=== PATIENT | female | born 1990 ===

== ENCOUNTER 2019-05-11 18:13 | Emergency (ER) | payer OTHER ==
[~2019-05-11] VITALS: Ht 157.5 cm; Wt 62.6 kg
--- OUTSIDE RECORDS SUMMARY | ~2019-05-11 | XMS | Encounter Summary ---
Demographics + + + | Address | [address] [address] | | | [place] [address] | + + + | Home Phone | | + + + | Preferred Language | Unknown | + + + | Marital Status | Single | + + + | Latter-Day Affiliation | Unknown | + + + | Race | White | + + + | Ethnic Group | or | + + + Author + + + | Author | [facility] | + + + | Organization | [facility] | + + + | Address | Unknown | + + + | Phone | Unavailable | + + + Support + + + + + | Name | Relationship | Address | Phone | + + + + + | Cas Merrill | ECON | [address] | | | | | [place], | | | | | [place] [address] | | + + + + + Care Team Providers + +------+ + | Care Drug Inspector Name | Role | Phone | + +------+ + PCP | Unavailable | + +------+ + Encounter Details +--------+ + + + + | Date | Type | Department | Care Team | Description | +--------+ + + + + | 02/24/ | Results | Registration [id number] | | | | 1993 | Only | [address] | | | | | | [address] Mailcode: [address] | | | | | | [place], [place] | | | | | | [address] | | | | | | [phone] | | | +--------+ + + + + Social History + +-------+ +--------+------+ | Tobacco Use | Types | Packs/Day | Years | Date | | | | | Used | | + +-------+ +--------+------+ | Never Assessed | | | | | + +-------+ +--------+------+ + + + | Sex Assigned at | Date Recorded | | | | + + + | Not on file | | + + + + + + + | Job Start Date | Occupation | Industry | + + + + | Not on file | Not on file | Not on file | + + + + + + + + | Travel History | Travel Start | Travel End | + + + + + + | No recent travel history available. | + + documented as of this encounter Plan of Treatment Not on filedocumented as of this encounter Procedures + +--------+ + + + | Procedure Name | Priori | Date/Time | Associated Diagnosis | Comments | | | ty | | | | + +--------+ + + + | CBC TESTS 2 | Routin | 02/24/1994 | | Results for this | | | e | 6:35 AM | | procedure are in the | | | | PDT | | results section. | + +--------+ + + + | CBC TESTS 1 | Routin | 02/24/1994 | | Results for this | | | e | 6:35 AM | | procedure are in the | | | | PDT | | results section. | + +--------+ + + + | SURGICAL PATHOLOGY | Routin | 02/24/1994 | | Results for this | | | e | | | procedure are in the | | | | | | results section. | + +--------+ + + + documented in this encounter Results CBC TESTS 2 (02/24/1994 6:35 AM PDT) + + + + + + | Component | Value | Ref Range | Performed | Pathologist | | | | | At | Signature | + + + + + + | WHITE CELL | 6.1 | K/CU MM | | | | COUNT | | | | | + + + + + + | WHITE CELL | CHECKED | K/CU MM | | | | COUNT | | | | | + + + + + + | RED CELL | 4.61 | M/CU MM | | | | COUNT | | | | | + + + + + + | HEMOGLOBIN | 12.7 | GM/DL | | | + + + + + + | HEMATOCRIT | 37.4 | % | | | + + + + + + | MCV | 81. (L) | FL | | | + + + + + + | MCH | 27.6 (L) | PG | | | + + + + + + | MCHC | 34.1 (H) | GM/DL | | | + + + + + + | RDW | 13. | % | | | + + + + + + | PLATELET | 134. (L) | K/CU MM | | | | COUNT | | | | | + + + + + + | PLATELET | PRELIMINARY RESULT | K/CU MM SEE | | | | COUNT | | FINAL REPORT | | | + + + + + + | MPV | 7.9 | [place] | | | + + + + + + + + | Specimen | + + | | + + + + + + + | Performing | Address | City/State/Zipcode | Phone Number | | Organization | | | | + + + + + | [facility] | [address] | [place] [address] | | | PATHOLOGY | [address] | | | + + + + + CBC TESTS 1 (02/24/1994 6:35 AM PDT) + + + + + + | Component | Value | Ref Range | Performed | Pathologist | | | | | At | Signature | + + + + + + | PLATELET | MKD CLUMPS ON SMEAR;MAY | | | | | FINAL | BE ERRONEOUS | | | | | REPORT - | | | | | | HEADER | | | | | + + + + + + + + | Specimen | + + | | + + + + + + + | Performing | Address | City/State/Zipcode | Phone Number | | Organization | | | | + + + + + | [facility] | [address] | [place] [address] | | | PATHOLOGY | [address] | | | + + + + + SURGICAL PATHOLOGY (02/24/1994) + + + + + + | Component | Value | Ref Range | Performed | Pathologist | | | | | At | Signature | + + + + + + | SURGICAL | SOURCE OF SPECIMEN: SEE | | [facility] | | | PATHOLOGY | RESULTS | | DEPARTMENT | | | | Preliminary | | OF | | | | History:CLINICAL | | PATHOLOGY | | | | HISTORYThe patient is a | | | | | | [age] year old female | | | | | | with a history of rectal | | | | | | bleedingand colonic | | | | | | polyp The preoperative | | | | | | diagnosis is colonic | | | | | | polyposis. Theclinician | | | | | | wishes to rule out | | | | | | malignancy. GROSS | | | | | | DESCRIPTIONA single | | | | | | specimen is received in | | | | | | formalin labeled cecal | | | | | | polyp. Itconsists of a | | | | | | single fragment of monroe, | | | | | | spherical, soft tissue | | | | | | measuring0.7 cm. in | | | | | | average diameter. A | | | | | | mucosal surface can be | | | | | | identified whichappears | | | | | | bumpy and lobulated. The | | | | | | specimen is bivalved | | | | | | and submitted intoto in | | | | | | a single | | | | | | cassette.Dictated by: | | | | | | Lin Camejo MS | | | | | | III/dj FINAL | | | | | | DIAGNOSISSPECIMEN | | | | | | LABELED CECAL POLYP: | | | | | | JUVENILE POLYP WITH | | | | | | INFLAMMATION AND | | | | | | REACTIVE EPITHELIUM | | | | | | Case reviewed by: | | | | | | Trinh Choudhary M.D.T: | | | | | | 02/28/[birth year]/es My | | | | | | electronic signature | | | | | | indicates that I have | | | | | | personally reviewed | | | | | | alldiagnostic slides, | | | | | | the gross and/or | | | | | | microscopic portion of | | | | | | thisreport and | | | | | | formulated the final | | | | | | diagnosis. | | | | + + + + + + + + | Specimen | + + | Other | + + + + + + + | Performing | Address | City/State/Zipcode | Phone Number | | Organization | | | | + + + + + | [facility] | [address] | [place] [address] | | | PATHOLOGY | [address] | | | + + + + + documented in this encounter Visit Diagnoses Not on filedocumented in this encounter"
--- OUTSIDE RECORDS SUMMARY | ~2019-05-11 | XMS | Clinical Summary ---
Demographics + + + | Address | [address] | | | [place] [address] | + + + | Home Phone | | + + + | Preferred Language | Unknown | + + + | Marital Status | Single | + + + | Taoism Affiliation | Unknown | + + + | Race | White | + + + | Ethnic Group | or | + + + Author + + + | Organization | Unknown | + + + | Address | Unknown | + + + | Phone | Unavailable | + + + Support + + + + + | Name | Relationship | Address | Phone | + + + + + | Cas Merrill | ECON | [address] | | | | | [place], | | | | | [place] [address] | | + + + + + Care Team Providers + +------+ + | Care Well Surveying Engineer Name | Role | Phone | + +------+ + PCP | Unavailable | + +------+ + Source Comments NIDHI is fully live on both [facility] and [facility] InPatient.[facility] Allergies No Known Allergies Medications Not on file Active Problems Not on file Social History + +-------+ +--------+------+ | Tobacco [...] recent travel history available. | + + Last Filed Vital Signs Not on file Plan of Treatment + + + + + | Health Maintenance | Due Date | Last Done | Comments | + + + + + | Influenza (Flu) | | | | | vaccination (#1) | 9 | | | + + + + + | Pneumococcal | Aged Out | | No longer eligible | | vaccination | | | based on patient's | | | | | age to complete this | | | | | topic | + + + + + Results Not on filefrom Last 3 Months"
--- OUTSIDE RECORDS SUMMARY | ~2019-05-11 | XMS | Clinical Summary ---
Demographics + + + | Address | [address] [facility] [address] | | | [place] [address] | + + + | Home Phone | | + + + | Preferred Language | Unknown | + + + | Marital Status | Single | + + + | Taoism Affiliation | Unknown | + + + | Race | Unknown | + + + | Ethnic Group | Unknown | + + + Author + + + | Author | [facility] (Historical as of | | | 02-22-19) | + + + | Organization | [facility] (Historical as of | | | 02-22-19) | + + + | Address | Unknown | + + + | Phone | Unavailable | + + + Support + + +---------+ + | Name | Relationship | Address | Phone | + + +---------+ + | Dimitry Thomas | ECON | Unknown | | + + +---------+ + | BobCorrina | ECON | Unknown | | + + +---------+ + | Detailed,Message | ECON | Unknown | | + + +---------+ + Care Team Providers + +------+ + | Care Lard Bleacher Name | Role | Phone | + +------+ + PP | Unavailable | + +------+ + Allergies No Known Allergies Current Medications + + + +---------+------+------+-------+ | Prescription | Sig. | Disp. | Refills | Star | End | Statu | | | | | | t | Date | s | | | | | | Date | | | + + + +---------+------+------+-------+ | | Take 1 tablet by | 30 | 5 | 09/0 | | Activ | | levonorgestrel-ethin | mouth daily. | tablet | | 20 | | e | | yl estradiol | | | | 14 | | | | (ASHLI VELAZQUEZ LESSI | | | | | | | | NA) 0.1-20 MG-MCG | | | | | | | | per | | | | | | | | tabletIndications: | | | | | | | | Family planning | | | | | | | + + + +---------+------+------+-------+ | barium (READI-CAT) | Take barium oral | 900 mL | 0 | 12/1 | | Activ | | 2.1 % SUSP | prep per included | | | 11/25 | | e | | | written | | | 18 | | | | | instructions. | | | | | | + + + +---------+------+------+-------+ Active Problems + + + | Problem | Noted Date | + + + | Irregular heart beat | 10/24/2012 | + + + Immunizations +------+ + + | Name | Dates Previously Given | Next Due | +------+ + + | Tdap | 11/04/2010 | | +------+ + + Family History + + +------+ + | Medical History | Relation | Name | Comments | + + +------+ + | Schizophrenia | Brother | | | + + +------+ + + +------+--------+ + | Relation | Name | Status | Comments | + +------+--------+ + | Brother | | Alive | | + +------+--------+ + | Brother | | Alive | | + +------+--------+ + | Brother | | | | + +------+--------+ + | Father | | Alive | | + +------+--------+ + | Mother | | Alive | | + +------+--------+ + Social History + +-------+ +--------+------+ | Tobacco Use | Types | Packs/Day | Years | Date | | | | | Used | | + +-------+ +--------+------+ | Never Smoker | | | | | + +-------+ +--------+------+ + + +---------+ + | Alcohol Use | Drinks/We | oz/Week | Comments | | | ek | | | + + +---------+ + | Yes | | | on occasion | + + +---------+ + + + + | Sex Assigned at | Date Recorded | | | | + + + | Not on file | | + + + Last Filed Vital Signs + + + + | Vital Sign | Reading | Time Taken | + + + + | Blood Pressure | 90/64 | 03/13/2014 12:37 PM PDT | + + + + | Pulse | 68 | 03/13/2014 12:37 PM PDT | + + + + | Temperature | 36.8 C (98.2 F) | 03/13/2014 12:37 PM PDT | + + + + | Respiratory Rate | 20 | 10/24/2012 6:13 PM PDT | + + + + | Oxygen Saturation | 100% | 03/13/2014 12:37 PM PDT | + + + + | Inhaled Oxygen | - | - | | Concentration | | | + + + + | Weight | 55.2 kg (121 lb 12.8 | 03/13/2014 12:37 PM PDT | | | oz) | | + + + + | Height | 159.5 cm (5' 2.8") | 03/13/2014 12:37 PM PDT | + + + + | Body Mass Index | 21.71 | 03/13/2014 12:37 PM PDT | + + + + Plan of Treatment + + + + + | Health Maintenance | Due Date | Last Done | Comments | + + + + + | Vaccine: Influenza | | | | | (#1) | 9 | | | + + + + + | Cervical Cancer | | 03/16/2014 | | | Screening (Pap) | 9 | | | + + + + + | Vaccine: | | 11/04/2010, 07/07/1996, | | | Dtap/Tdap/Td (6 - | 1 | 11/03/1995, Additional history | | | Td) | | exists | | + + + + + Results Not on filefrom Last 3 Months Insurance +---------+--------+ +------+-------+ + | Payer | Benefi | Subscriber | Type | Phone | Address | | | t Plan | ID | | | | | | / | | | | | | | Group | | | | | +---------+--------+ +------+-------+ + | PREMERA | PREMER | [id number] | | | [address] [address] | | | A BLUE | 9 | | | [place], [place] | | | CARD | | | | [phone] | +---------+--------+ +------+-------+ + + +--------+ +--------+ + + | Guarantor Name | Accoun | Relation to | Date | Phone | Billing Address | | | t Type | Patient | of | | | | | | | | | | + +--------+ +--------+ + + | IDALIA BEATTY | Person | Self [birth year] Home: | [address] | | | al/Fam | | 1990 | [phone] | [address] [place], | | | [place] | | | [address] | [place] [address] | + +--------+ +--------+ + +
--- OUTSIDE RECORDS SUMMARY | ~2019-05-11 | XMS | Encounter Summary ---
Demographics + + + | Address | [address] [address] | | | [place] [address] | + + + | Home Phone | | + + + | Preferred Language | Unknown | + + + | Marital Status | Single | + + + | Shinto Affiliation | Unknown | + + + | Race | White | + + + | Ethnic Group | or | + + + Author + + + | Author | [facility] | + + + | Organization | [facility] | + + + | Address | Unknown | + + + | Phone | Unavailable | + + + Support + + + + + | Name | Relationship | Address | Phone | + + + + + | Cas Merrill | ECON | [address] | | | | | [place], | | | | | [place] [address] | | + + + + + Care Team Providers + +------+ + | Care Enterprise Applications Manager Name | Role | Phone | + [...] [id number] | | | | | | [place], [place] | | | | | | [address] | | | | | | [phone] | | | +--------+ + + + [...] | + + + + + | [facility] | [address] | [place] [address] | | | PATHOLOGY | [address] [...] | + + + + + | [facility] | [address] | [place] [address] | | | PATHOLOGY | [address] | | | + + + + + SURGICAL PATHOLOGY (02/24/1994) + + + + + + | Component | Value | Ref Range | Performed | Pathologist | | | | | At | Signature | + + + + + + | SURGICAL | SOURCE OF SPECIMEN: SEE | | [facility] | | | PATHOLOGY | RESULTS [...] | + + + + + | [facility] | [address] | [place] [address] | | | PATHOLOGY | [address] | | | + + + + + documented in this encounter Visit Diagnoses Not on filedocumented in this encounter"
--- OUTSIDE RECORDS SUMMARY | ~2019-05-11 | XMS | Clinical Summary ---
Demographics + + + | Address | [address] | | | [place] [address] | + + + | Home Phone | | + + + | Preferred Language | Unknown | + + + | Marital Status | Single | + + + | Hoahaoism Affiliation | Unknown | + + + [...] | Cas Merrill | ECON | [address] | | | | | [place], | | | | | [place] [address] | | + + + + + Care Team Providers + +------+ + | Care Safety Director Name | Role | Phone | + +------+ + PCP | Unavailable | + +------+ + Source Comments NIDHI is fully live on both [facility] and [facility] InPatient.[facility] Allergies No Known Allergies Medications Not [...]
--- OUTSIDE RECORDS SUMMARY | ~2019-05-11 | XMS | Clinical Summary ---
Demographics + + + | Address | [address] [facility] [address] | | | [place] [address] | + + + | Home Phone | | + + + | Preferred Language | Unknown | + + + | Marital Status | Single | + + + | Hindu Affiliation | Unknown | + + + | Race | Unknown | + + + | Ethnic Group | Unknown | + + + Author + + + | Author | [facility] (Historical as of | | | 02-22-19) | + + + | Organization | [facility] (Historical as of | | | 02-22-19) [...] Team Providers + +------+ + | Care Grease And Tallow Pumper Name | Role | Phone | + [...] +------+-------+ + | PREMERA | PREMER | [id number] | | | [address] [address] | | | A BLUE | 9 | | | [place], [place] | | | CARD | | | | [phone] | +---------+--------+ +------+-------+ + + +--------+ +--------+ [...] [address] | | | [address] | [place] [address] | + +--------+ +--------+ + +
[~2019-05-11 18:13] MED LIST: FLANAX220 MG PO; OMEPRAZOLE20 MG PO; ZOFRAN ODT4 MG PO
== END 2019-05-11 20:50 | disposition home or self-care (01) ==
LOC: ED 18:13
DX: O99.89 Other specified diseases and conditions complicating pregnancy, childbirth and the puerperium (principal); R10.2 Pelvic and perineal pain; Z3A.16 16 weeks gestation of pregnancy
CPT/HCPCS: 81001; 99284

== ENCOUNTER 2019-10-23 18:46 | Inpatient (IN) | payer OTHER ==
[~2019-10-23] VITALS: Ht 160 cm; Wt 74.0 kg
--- NOTE | 2019-10-24 07:24 | PR ---
[facility] [address] [facility] [address] [place], [place] [address] Signed Progress Notes IP Datetime Report Generated by MARCE: 10/24/2019 07:24 PROGRESS NOTES: [id number] Impression: Normal progression of labor Procedures: Sterile Vag Exam Plan: Continue present management Informed Consent Obtain: Vaginal Delivery; Risks, Benefits and Alternatives Discussed VITAL SIGNS: [id number] Vital Signs: Reviewed; Within Normal Limits EXAM: [id number] Dilatation: 6.0 Effacement: 80 Station: -2 Uterine Contractions: q 2 to 3 min MEMBRANES: [id number] Membrane Status: Ruptured Comments: Getting more comfortable with redose. She is now progressing. Will continue present management. Fetus A: [id number] FHR Baseline: 145 Variability: Moderate 6-25bpm Accelerations: 15X15 Decelerations: Variable FHR Category: Category II Presentation: Vertex Comments on Fetus A: occ variable Fetus B: [id number] Signing Physician: Jennifer Genao MD Copies: ~ *Electronically Signed* 10/24/19 0724 JENNIFER GENAO MD PATIENT NAME: IDALIA TUBBS PROGRESS NOTE DATE OF : 88 PHYSICIAN: JENNIFER GENAO MD RPT #: [id number] REPORT IS CONFIDENTIAL AND NOT TO BE RELEASED WITHOUT AUTHORIZATION
--- NOTE | 2019-10-25 09:16 | PR ---
[facility] [place] [facility] [address] [facility] [address] [facility] [place], [place] [address] Signed PP Progress Notes Datetime Report Generated by MARCE: 10/25/2019 09:16 SUBJECTIVE: [id number] Pain: Within normal limits Vital Signs: [id number] Vital Signs: Reviewed; Within Normal Limits EXAM: [id number] Cardiovascular: Not Done Respiratory: Not Done Abdomen/Uterus: Abnormal Lochia: Normal Vulva/Perineum: Not Done Breasts: Not Done CVA Tenderness: Not Done Extremities: Normal Incision: Not Applicable Progress: Abnormal Exam Comments: Fundus firm, NT @ U-1. H/H 9.5/29, WBC 11.4, plat 178k IMPRESSION/PLAN/PROCEDURES: [id number] Impression: Normal progression Plan: Continue present management Procedures: None Progress Notes: Overall doing well. Will continue present care. Signing Physician: Jennifer Genao MD Copies: ~ *Electronically Signed* 10/25/19915 JENNIFER GENAO MD PATIENT NAME: IDALIA TUBBS PROGRESS NOTE DATE OF : 89 PHYSICIAN: JENNIFER GENAO MD RPT #: [id number] REPORT IS CONFIDENTIAL AND NOT TO BE RELEASED WITHOUT AUTHORIZATION
--- NOTE | 2019-10-26 08:25 | PR ---
[facility] [address] [facility] [place] [address] Signed PP Progress Notes Datetime Report Generated by CPN: 10/26/2019 08:25 SUBJECTIVE: [id number] Pain: Within normal limits Vital Signs: [id number] Vital Signs: Reviewed; Within Normal Limits EXAM: [id number] Cardiovascular: Not Done Respiratory: Not Done Abdomen/Uterus: Abnormal Lochia: Normal Vulva/Perineum: Not Done Breasts: Not Done CVA Tenderness: Not Done Extremities: Normal Incision: Not Applicable Progress: Normal Exam Comments: Fundus firm, NT @ U-1. Ext with 1+ edema IMPRESSION/PLAN/PROCEDURES: [id number] Impression: Normal progression Plan: Discharge Procedures: None Progress Notes: Doing well. She is ready for D/C. Signing Physician: Jennifer Genao MD Copies: ~ *Electronically Signed* 10/26/19824 JENNIFER GENAO MD PATIENT NAME: IDALIA TUBBS PROGRESS NOTE DATE OF : 89 PHYSICIAN: JENNIFER GENAO MD RPT #: [id number] REPORT IS CONFIDENTIAL AND NOT TO BE RELEASED WITHOUT AUTHORIZATION
== END 2019-10-26 09:40 | disposition home or self-care (01) | DRG 807 ==
LOC: FBCO 18:46 → FBC 20:04
PROVIDERS: ADMIT Obstetrics & Gynecology
PROC: 10E0XZZ Delivery of Products of Conception, External Approach (ICD-10-PCS; principal; 2019-10-24)
PROC: 0UQGXZZ Repair Vagina, External Approach (ICD-10-PCS; 2019-10-24)
PROC: 00HU33Z Insertion of Infusion Device into Spinal Canal, Percutaneous Approach (ICD-10-PCS; 2019-10-24)
PROC: 3E0R3BZ Introduction of Anesthetic Agent into Spinal Canal, Percutaneous Approach (ICD-10-PCS; 2019-10-24)
DX: O99.824 Streptococcus B carrier state complicating childbirth (principal); Z37.0 Single live birth; Z3A.39 39 weeks gestation of pregnancy; O71.4 Obstetric high vaginal laceration alone; O69.81X0 Labor and delivery complicated by cord around neck, without compression, not applicable or unspecified; O76 Abnormality in fetal heart rate and rhythm complicating labor and delivery
CPT/HCPCS: 01960; 36415; 84112; 85027; A9270; J2540; J2590; J2795; J7121

== ENCOUNTER 2024-07-24 00:05 | Inpatient (IN) | payer OTHER ==
[~2024-07-24] VITALS: Ht 160 cm; Wt 74.8 kg
[2024-07-24] MEDS ORDERED: ondansetron HCL 4 MG/2 ML VIAL IV PRN (00:45)
[2024-07-24] MEDS ORDERED: MAGNESIUM HYDROXIDE/AL HYDROX 30 ML CUP PO PRN ×2 (00:45→10:30)
[2024-07-24] MEDS ORDERED: OXYTOCIN/DEXTROSE 5% 20 UNITS/100 ML BAG IV SCH (00:45)
[2024-07-24] MEDS ORDERED: CALCIUM CARBONATE 500 MG CHEW PO PRN ×2 (00:45→10:30)
[2024-07-24] MEDS ORDERED: fentaNYL citrate 100 MCG/2 ML VIAL IV PRN (00:45)
[2024-07-24] MEDS ORDERED: LIDOCAINE 2% VISCOUS 6 ML SYR TOP ONE ×4 (00:45→10:30)
[2024-07-24] MEDS ORDERED: PENICILLIN G POTASSIUM 5 MUNITS/110 ML PIGGYBACK IV ONE (00:45)
[2024-07-24] MEDS ORDERED: LACTATED RINGER'S 1,000 ML IV SCH (01:00)
[2024-07-24 01:13] LABS: HEMATOCRIT 34.6 % (35.0-50.0); HEMOGLOBIN 12.1 g/dL (12.0-18.0); MCH 30.3 (27-36); MCHC 34.9 g/dl (30-36); MCV 86.8 fl (81-99); RBC 3.99 M/ul (4.3-5.7); RDW 12.8 (10.5-15.0)
[2024-07-24 01:20] VITALS: BP 114/78
[2024-07-24 01:44] LABS: AMPHETAMINES, URINE NEGATIVE (NEGATIVE); BARBITURATES, URINE NEGATIVE (NEGATIVE); BENZODIAZEPINE, URINE NEGATIVE (NEGATIVE); BUPRENORPHINE, URINE NEGATIVE (NEGATIVE); CANNABINOID, URINE NEGATIVE (NEGATIVE); COCAINE, URINE NEGATIVE (NEGATIVE); ECSTASY, URINE NEGATIVE (NEGATIVE); FENTANYL, URINE NEGATIVE (NEGATIVE); METHADONE, URINE NEGATIVE (NEGATIVE); OPIATES, URINE NEGATIVE (NEGATIVE); OXYCODONE, URINE NEGATIVE (NEGATIVE); PHENCYCLIDINE, URINE NEGATIVE (NEGATIVE)
[2024-07-24 01:46] LABS: ABO O; ANTIBODY SCREEN NEGATIVE; RH POSITIVE
[2024-07-24] MEDS ORDERED: ROPIVACAINE 0.2% 200 ML BAG ONE (03:11)
[2024-07-24] MEDS ORDERED: LACTATED RINGER'S 500 ML IV PRN (03:15)
[2024-07-24] MEDS ORDERED: ePHEDrine sulfate 5 MG/ML SYRINGE IV PRN (03:15)
[2024-07-24] MEDS ORDERED: LACTATED RINGER'S 2,000 ML IV ONE (03:15)
[2024-07-24] MEDS ORDERED: ROPIVACAINE 0.2% 200 ML BAG EPIDURAL SCH (03:15)
[2024-07-24] MEDS ORDERED: PENICILLIN G POTASSIUM 2.5 MUNITS in DEXTROSE 5% 100 ML IV SCH (04:30)
[2024-07-24] MEDS ORDERED: PENICILLIN G POTASSIUM 5 MUNITS/10 ML VIAL ONE (04:47)
[2024-07-24] MEDS ORDERED: OXYTOCIN/0.9 % SODIUM CHLORIDE 500 ML IV SCH ×2 (07:45→10:30)
[2024-07-24] MEDS ORDERED: BENZOCAINE 60 ML AEROSOL TOP PRN (10:30)
[2024-07-24] MEDS ORDERED: MAGNESIUM HYDROXIDE 30 ML UDC PO PRN (10:30)
[2024-07-24] MEDS ORDERED: IBUPROFEN 600 MG TAB PO PRN (10:30)
[2024-07-24] MEDS ORDERED: WITCH HAZEL/GLYCERIN 1 EA PAD TOP PRN (10:30)
[2024-07-24] MEDS ORDERED: HYDROCORTISONE ACETATE 25 MG SUPP PR PRN (10:30)
[2024-07-24] MEDS ORDERED: ACETAMINOPHEN 325 MG TAB PO PRN (10:30)
[2024-07-24] MEDS ORDERED: SENNOSIDES/DOCUSATE 1 EA TAB PO SCH (21:00)
== END 2024-07-25 13:55 | disposition home or self-care (01) | DRG 807 ==
LOC: FBCO 00:05 → FBC 00:31 → FBCO 07-27 07:22
PROVIDERS: ADMIT Advanced Practice Midwife; ATTEND Advanced Practice Midwife
PROC: 10E0XZZ Delivery of Products of Conception, External Approach (ICD-10-PCS; principal; 2024-07-24)
PROC: 10907ZC Drainage of Amniotic Fluid, Therapeutic from Products of Conception, Via Natural or Artificial Opening (ICD-10-PCS; 2024-07-24)
PROC: 3E0R3BZ Introduction of Anesthetic Agent into Spinal Canal, Percutaneous Approach (ICD-10-PCS; 2024-07-24)
PROC: 00HU33Z Insertion of Infusion Device into Spinal Canal, Percutaneous Approach (ICD-10-PCS; 2024-07-24)
DX: O99.824 Streptococcus B carrier state complicating childbirth (principal); Z37.0 Single live birth; Z3A.39 39 weeks gestation of pregnancy
CPT/HCPCS: 36415; 80307; 85027; 86850; 86900; 86901; A9270; J2540; J2590; J7121